=== PATIENT | male | born 2000 | race Caucasian/White ===

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

== ENCOUNTER 2018-09-15 15:10 | Emergency (ER) | payer OTHER ==
[2018-09-15] MEDS ORDERED: Sodium Chloride 0.9% 10 ML Syringe FLUSH PRN (15:26)
[2018-09-15] MEDS ORDERED: Ketorolac 30 MG/ML SDV IVPUSH ONE (15:37)
--- NOTE | 2018-09-15 15:42 | EDM.PDOC ---
ED HPI GENERAL MEDICAL PROBLEM - General Chief Complaint: Chest Pain Stated Complaint: SWEATS, CHEST PAIN Time Seen by Provider: 09/15/18 15:38 Source of Information: Reports: Patient History Limitations: Reports: No Limitations - History of Present Illness INITIAL COMMENTS - FREE TEXT/NARRATIVE: Patient c/o productive cough (brown/black sputum) and pleuritic chest pain x 2 days associated with dyspnea on exertion. Denies fevers but has had chills. Treated at walk in clinic yesterday, diagnosed with possible walking pneumonia, but neither CXR nor antibiotics ordered. Denies h/o CAD or DVT/PE. 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: Acetaminophen, NSAIDS Left upper chest Pain Score (Numeric/FACES): 3 - Related Data Allergies Allergy/AdvReac Type Severity Reaction Status Date / Time No Known Allergies Allergy Verified 09/15/18 15:50 Home Meds: Home Meds Ibuprofen 600 mg PO Q6H PRN #20 tablet 09/15/18 [Rx] Past Medical History - Past Health History Medical/Surgical History: Denies Medical/Surgical History Musculoskeletal History: Reports: Other (See Below) Other Musculoskeletal History: boxer fracture Social & Family History - Family History Family Medical History: Noncontributory - Tobacco Use Smoking Status *Q: Current Every Day Smoker Tobacco Use Within Last Twelve Months: Cigarettes - Alcohol Use Alcohol Use History: No ED ROS GENERAL - Review of Systems Review Of Systems: ROS reveals no pertinent complaints other than HPI. ED EXAM, GENERAL - Physical Exam Exam: See Below Exam Limited By: No Limitations General Appearance: Alert, WD/WN, No Apparent Distress Ears: Normal External Exam Nose: Normal Inspection Throat/Mouth: No Airway Compromise Head: Atraumatic, Normocephalic Neck: Full Range of Motion Respiratory/Chest: No Respiratory Distress, Lungs Clear, Normal Breath Sounds, Chest Non-Tender Cardiovascular: Regular Rate, Rhythm, No Murmur GI/Abdominal: No Distention Extremities: Normal Inspection, Normal Range of Motion, Non-Tender, No Pedal Edema Neurological: Alert, Normal Cognition, No Motor/Sensory Deficits Psychiatric: Normal Affect, Normal Mood Skin Exam: Warm, Dry, Intact EKG INTERPRETATION EKG Date: 09/15/18 Time: 15:18 Rhythm: NSR Rate (Beats/Min): 62 [place]: RAD-Right [place] Deviation P-Wave: Present QRS: Normal ST-T: Other (ST elevation due to early repolarization pattern) QT: Normal Comparison: No Change (07/30/17) Course - Vital Signs Last Recorded V/S: Last Vital Signs Temp 36.6 C 09/15/18 15:15 Pulse 62 09/15/18 15:15 Resp 20 09/15/18 15:15 BP 125/74 09/15/18 15:15 Pulse Ox 100 09/15/18 15:15 - Orders/Labs/Meds Orders: Active Orders 24 hr Category Date Time Status CXR [Chest 1V Frontal] [CR] Stat Exams 09/15/18 15:20 Taken Sodium Chloride 0.9% [Saline Flush] Med 09/15/18 15:26 Active 10 ml FLUSH ASDIRECTED PRN Saline Lock Insert [OM.PC] Routine Oth 09/15/18 15:26 Ordered EKG 12 Lead [EK] Stat Ther 09/15/18 15:20 Ordered Medication Orders Sodium Chloride (Saline Flush) 10 ml FLUSH ASDIRECTED PRN PRN Reason: Keep Vein Open Last Admin: 09/15/18 15:38 Dose: 10 ml Labs: Laboratory Tests 09/15/18 09/15/18 09/15/18 Range/Units 15:40 15:40 15:40 WBC 6.7 (4.5-12.0) X10-3/uL RBC 5.31 (4.30-5.75) x10(6)uL Hgb 16.2 (13.5-17.8) g/dL Hct 48.3 (30.0-51.3) % MCV 91.0 (80-96) fL MCH 30.5 (27.7-33.6) pg MCHC 33.6 (32.2-35.4) g/dL RDW 11.9 (11.5-15.5) % Plt Count 235 (125-369) X10(3)uL MPV 9.0 (7.4-10.4) fL Neut % (Auto) 66.7 (46-82) % Lymph % (Auto) 22.4 (13-37) % [place] % (Auto) 7.7 (4-12) % Eos % (Auto) 3 (1.0-5.0) % Baso % (Auto) 0 (0-2) % Neut # (Auto) 4.5 (1.6-8.3) # Lymph # (Auto) 1.5 (0.6-5.0) # [place] # (Auto) 0.5 (0.0-1.3) # Eos # (Auto) 0.2 (0.0-0.8) # Baso # (Auto) 0.0 (0.0-0.2) # PT 11.0 (8.7-11.1) INR 1.13 (0.89-1.13) APTT 26.6 (24.4-33.2) SECONDS D-Dimer, Quantitative < 0.19 (0.0-0.59) mg/LFEU Sodium 141 (135-145) mmol/L Potassium 4.1 (3.5-5.3) mmol/L Chloride 103 (100-110) mmol/L Carbon Dioxide 26 (21-32) mmol/L BUN 15 (7-18) mg/dL Creatinine 1.1 (0.70-1.30) mg/dL Est Cr Clr Drug Dosing 85.91 mL/min Estimated GFR (MDRD) > 60 (>60) BUN/Creatinine Ratio 13.6 (9-20) Glucose 98 (80-116) mg/dL Calcium 9.0 (8.6-10.2) mg/dL Total Bilirubin 2.4 H (0.1-1.3) mg/dL AST 20 D (5-25) IU/L ALT 25 (12-36) U/L Alkaline Phosphatase 90 (56-112) IU/L Troponin I (<0.017-0.056) ng/mL Total Protein 7.2 (6.0-8.0) g/dL Albumin 4.3 (3.5-5.2) g/dL Globulin 2.9 g/dL Albumin/Globulin Ratio 1.5 // Range/Units 15:40 WBC (4.5-12.0) X10-3/uL RBC (4.30-5.75) x10(6)uL Hgb (13.5-17.8) g/dL Hct (30.0-51.3) % MCV (80-96) fL MCH (27.7-33.6) pg MCHC (32.2-35.4) g/dL RDW (11.5-15.5) % Plt Count (125-369) X10(3)uL MPV (7.4-10.4) fL Neut % (Auto) (46-82) % Lymph % (Auto) (13-37) % [place] % (Auto) (4-12) % Eos % (Auto) (1.0-5.0) % Baso % (Auto) (0-2) % Neut # (Auto) (1.6-8.3) # Lymph # (Auto) (0.6-5.0) # [place] # (Auto) (0.0-1.3) # Eos # (Auto) (0.0-0.8) # Baso # (Auto) (0.0-0.2) # PT (8.7-11.1) INR (0.89-1.13) APTT (24.4-33.2) SECONDS D-Dimer, Quantitative (0.0-0.59) mg/LFEU Sodium (135-145) mmol/L Potassium (3.5-5.3) mmol/L Chloride (100-110) mmol/L Carbon Dioxide (21-32) mmol/L BUN (7-18) mg/dL Creatinine (0.70-1.30) mg/dL Est Cr Clr Drug Dosing mL/min Estimated GFR (MDRD) (>60) BUN/Creatinine Ratio (9-20) Glucose (80-116) mg/dL Calcium (8.6-10.2) mg/dL Total Bilirubin (0.1-1.3) mg/dL AST (5-25) IU/L ALT (12-36) U/L Alkaline Phosphatase (56-112) IU/L Troponin I < 0.017 L (<0.017-0.056) ng/mL Total Protein (6.0-8.0) g/dL Albumin (3.5-5.2) g/dL Globulin g/dL Albumin/Globulin Ratio Meds: Medications Generic Name Dose Route Start Last Admin Trade Name Freq PRN Reason Stop Dose Admin Sodium Chloride 10 ml 09/15/18 15:26 09/15/18 15:38 Saline Flush FLUSH 10 ml ASDIRECTED PRN Administration Keep Vein Open Discontinued Medications Generic Name Dose Route Start Last Admin Trade Name Edwin PRN Reason Stop Dose Admin Ketorolac Tromethamine 30 mg 09/15/18 15:37 09/15/18 15:45 Toradol IVPUSH 09/15/18 15:38 30 mg ONETIME ONE Administration - Radiology Interpretation Free Text/Narrative:: CXR: No acute process (ED provider interpretation). - Re-Assessments/Exams Free Text/Narrative Re-Assessment/Exam: 09/15/18 16:26 Chest pain resolved after Toradol 30 mg IV. Departure - Departure Time of Disposition: 16:26 Disposition: Home, Self-Care 01 Condition: Good Clinical Impression: Viral upper respiratory illness, Pleurisy, Hyperbilirubinemia Prescriptions: Ibuprofen 600 mg PO Q6H PRN #20 tablet PRN Reason: Pain Instructions: Viral Respiratory Infection, [id number], Pleurisy, [id number] , Bilirubin Test Referrals: Gordon Randall MD [Primary Care Provider] - 1 Week Forms: ED Department Discharge Additional Instructions: Take Ibuprofen as needed for pain. Take OTC Mucinex as needed for cough. Follow up with your primary physician in 1 week to recheck the Bilirubin test. Return to the ER if symptoms worsen. - My Orders Last 24 Hours: My Active Orders 09/15/18 15:20 CXR [Chest 1V Frontal] [CR] Stat EKG 12 Lead [EK] Stat 09/15/18 15:26 Sodium Chloride 0.9% [Saline Flush] 10 ml FLUSH ASDIRECTED PRN Saline Lock Insert [OM.PC] Routine - Assessment/Plan Last 24 Hours: My Active Orders 09/15/18 15:20 CXR [Chest 1V Frontal] [CR] Stat EKG 12 Lead [EK] Stat 09/15/18 15:26 Sodium Chloride 0.9% [Saline Flush] 10 ml FLUSH ASDIRECTED PRN Saline Lock Insert [OM.PC] Routine
[2018-09-15 15:51] VITALS: BP 125/74
--- NOTE | 2018-09-16 08:57 | CR ---
INDICATION: Chest pain. CHEST ONE VIEW: Upright view of the chest 09/15/18--no comparisons. The heart is normal in size and shape. Mediastinum was unremarkable. Bony thorax was unremarkable. Overlying EKG leads are noted. An active infiltrate or effusion was not identified. IMPRESSION: No acute process. MTDD
== END 2018-09-15 16:55 | disposition home or self-care (01) ==
LOC: FB.ED 15:10
DX: J06.9 Acute upper respiratory infection, unspecified (principal); R09.1 Pleurisy; E80.6 Other disorders of bilirubin metabolism; F17.210 Nicotine dependence, cigarettes, uncomplicated
CPT/HCPCS: 71045; 80053; 84484; 85025; 85379; 85610; 85730; 93005; 96374; 99285-25; J1885

== ENCOUNTER 2021-09-29 02:04 | Emergency (ER) | payer SELFPAY ==
[2021-09-29 02:13] VITALS: BP 116/74; PULSE 84
[2021-09-29] MEDS: Diphtheria,Pertussis(Acell),Tetanus Vaccine 0.5 ML Syringe IM ONE (02:20)
[2021-09-29] MEDS ORDERED: Bacitracin Oint 1 GM U/D Packet TOP ONE (02:23)
== END 2021-09-29 02:30 | disposition home or self-care (01) ==
LOC: FB.ED 02:04
DX: S61.200A Unspecified open wound of right index finger without damage to nail, initial encounter (principal); F17.210 Nicotine dependence, cigarettes, uncomplicated; Z23 Encounter for immunization; W26.8XXA Contact with other sharp object(s), not elsewhere classified, initial encounter
CPT/HCPCS: 90471; 90715; 99281; 99282-25

== ENCOUNTER 2022-08-19 02:10 | Emergency (ER) | payer SELFPAY ==
[2022-08-19] MEDS ORDERED: Penicillin V Potassium 250 MG Tab PO ONE (02:11)
[2022-08-19] MEDS ORDERED: Acetaminophen/HYDROcodone 325-5 MG Tab PO ONE (02:11)
[2022-08-19 02:38] VITALS: BP 108/82; PULSE 82
== END 2022-08-19 02:59 | disposition home or self-care (01) ==
LOC: FB.ED 02:10
DX: K04.7 Periapical abscess without sinus (principal); F17.210 Nicotine dependence, cigarettes, uncomplicated
CPT/HCPCS: 99283; A9270-GY

== ENCOUNTER 2024-02-05 17:25 | Emergency (ER) | payer SELFPAY ==
[2024-02-05] MEDS: Cephalexin 500 MG Cap PO ONE (18:01)
[2024-02-05] MEDS: Ibuprofen 400 MG Tab PO ONE (18:07)
[2024-02-05] MEDS: cefTRIAXone 500 MG Vial IM ONE (18:07)
[2024-02-05] MEDS: Acetaminophen 500 MG Tab PO ONE (18:08)
[2024-02-05 19:05] VITALS: BP 115/84; PULSE 87
== END 2024-02-05 18:50 | disposition home or self-care (01) ==
LOC: FB.ED 17:25
DX: L03.115 Cellulitis of right lower limb (principal); F17.210 Nicotine dependence, cigarettes, uncomplicated
CPT/HCPCS: 73630-RT; 96372; 99283; A9270-GY; J0696